=== PATIENT | male | born 1970 | race Caucasian/White ===

== ENCOUNTER 2019-07-08 11:08 | Emergency (ER) | payer BC ==
[~2019-07-08] VITALS: Ht 185.4 cm; Wt 130.0 kg
[~2019-07-08 11:08] MED LIST: ALBU17AE26 IH; CLIN150C8 PO; FAMO40TA59 PO; MICO113C TP; NO HOME MEDS; ONDA8TAB6 PO
[2019-07-08] MEDS ORDERED: acetaminophen 325mg/10.15ml oral unit dose solution PO ONE (11:25)
--- NOTE | 2019-07-08 12:23 | NUR ---
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
[2019-07-08 13:05] VITALS: BP 162/95
[2019-07-08] MEDS ORDERED: COLC0.6T69 PO (13:20)
[2019-07-08] MEDS ORDERED: dexamethasone 4mg/ml inj IM ONE (13:20)
[2019-07-08] MEDS ORDERED: triamcinolone acetonide 40mg/ml inj IM ONE (13:20)
--- NOTE | 2019-07-08 14:09 | NUR ---
PT STATES HE IS FEELING MUCH BETTER AND DENIES PAIN.
== END 2019-07-08 14:11 | disposition home or self-care (01) ==
LOC: ER 11:08
DX: M25.562 Pain in left knee (principal); R06.02 Shortness of breath; R07.9 Chest pain, unspecified; G89.29 Other chronic pain; G47.30 Sleep apnea, unspecified
CPT/HCPCS: 93971; 96372; 99284; J1100; J3301

== ENCOUNTER 2020-09-04 09:32 | Emergency (ER) | payer BC ==
[~2020-09-04] VITALS: Ht 180.3 cm; Wt 130.4 kg
[~2020-09-04 09:32] MED LIST changes: +COLC0.6T72 PO
[2020-09-04] MEDS ORDERED: LORazepam 2 mg/ml vial IV ONE (10:00)
[2020-09-04] MEDS ORDERED: meclizine 12.5mg tablet PO ONE (10:00)
[2020-09-04] MEDS ORDERED: ondansetron/PF 4mg/2ml inj IV ONE (10:00)
[2020-09-04 10:34] LABS: BASOPHILS % (AUTO) 0.5 % (0-1); EOSINOPHILS % (AUTO) 0.4 % (0-6); HEMATOCRIT 40.2 % (42.0-52.0); HEMOGLOBIN 13.6 g/dl (14.0-17.9); LYMPHOCYTES % (AUTO) 32.4 % (21-51); MEAN CORPUSCULAR HEMOGLOBIN 29.1 PG (27.0-31.0); MEAN CORPUSCULAR HGB CONC 33.7 g/dL (33.0-36.5); MEAN CORPUSCULAR VOLUME 86.3 FL (78-98); MEAN PLATELET VOLUME 9.7 FL (7.4-10.4); MONOCYTES # (AUTO) 0.6 X10'3 (0-0.9); MONOCYTES % (AUTO) 6.7 % (2-12); NEUTROPHILS # (AUTO) 5.6 X10'3 (1.8-7.7); PLATELET COUNT 250 X10'3 (140-440); RED BLOOD COUNT 4.66 X10'6 (4.70-6.10); RED CELL DISTRIBUTION WIDTH 13.7 % (11.5-14.5); WHITE BLOOD COUNT 9.3 X10'3 (4.5-11.0)
[2020-09-04] MEDS ORDERED: normal saline 1000ML IV soln IVB ONE ×2 (10:35→12:05)
[2020-09-04 10:39] LABS: PARTIAL THROMBOPLASTIN TIME 22 SECONDS (22-32)
[2020-09-04 10:41] LABS: ALANINE AMINOTRANSFERASE 53 U/L (12-78); ALBUMIN 4.2 G/DL (3.4-5.0); ALBUMIN/GLOBULIN RATIO 1.3 (1.1-1.5); ALKALINE PHOSPHATASE 88 IU/L (46-116); ANION GAP 16 (8-16); ASPARTATE AMINO TRANSFERASE 34 U/L (10-37); BILIRUBIN,TOTAL 0.6 MG/DL (0.1-1.0); BLOOD UREA NITROGEN 17 MG/DL (7-18); BUN/CREATININE RATIO 19.1 (5.4-32.0); CALCIUM 8.8 MG/DL (8.5-10.1); CHLORIDE 99 MMOL/L (99-107); CREATININE 0.89 MG/DL (0.60-1.10); GLUCOSE 303 MG/DL (70-104); POTASSIUM 3.4 MMOL/L (3.5-5.1); SODIUM 136 MMOL/L (135-145); TOTAL CARBON DIOXIDE 21.5 MMOL/L (24-32); TOTAL PROTEIN 7.5 G/DL (6.4-8.2); eGFR 90 ML/MIN
[2020-09-04 11:33] LABS: HEMOGLOBIN A1C 7.3 % (4.5-6.2)
[2020-09-04 11:38] LABS: COLOR,URINE YELLOW (Yellow); GLUCOSE, URINE 500 mg/dl (Neg); KETONES,URINE 40 mg/dl (Neg); LEUKOCYTE ESTERASE ,URINE NEGATIVE (Neg); NITRITES, URINE NEGATIVE (Neg); OCCULT BLOOD,URINE NEGATIVE (Neg); PH,URINE 5.5 (4.8-8.0); PROTEIN,URINE NEGATIVE (Neg); UROBILINOGEN,URINE 0.2 E.U/dL (0.2-1.0)
[2020-09-04 11:41] LABS: URINE AMPHETAMINE SCREEN NEGATIVE (Neg); URINE BARBITUATE SCREEN NEGATIVE (Neg); URINE BENZODIAZEPINES SCREEN NEGATIVE (Neg); URINE CANNABINOID SCREEN POSITIVE (Neg); URINE COCAINE SCREEN NEGATIVE (Neg); URINE METHADONE SCREEN NEGATIVE (Neg); URINE OPIATE SCREEN NEGATIVE (Neg); URINE PHENCYCLIDINE SCREEN NEGATIVE (Neg)
[2020-09-04 11:44] LABS: UA COLLECTION TYPE URINAL
[2020-09-04 11:45] LABS: CLARITY,URINE Slightly Cloudy (Clear); SQUAMOUS EPITHELIAL CELL,UR FEW /LPF (FEW)
[2020-09-04 11:46] LABS: BACTERIA,URINE NONE SEEN /HPF (Neg); MUCUS STRANDS MANY /LPF (Neg); RBC,URINE 0-2 /HPF (0-2); TRANSITIONAL EPI CELLS,URINE FEW /HPF; WBC,URINE 0-4 /HPF (0-4)
[2020-09-04] MEDS ORDERED: METF500T PO (12:09)
[2020-09-04] MEDS ORDERED: MECL-159 PO (12:09)
[2020-09-04] MEDS ORDERED: ONDA4TAB12 PO (12:09)
[2020-09-04 12:36] VITALS: BP 134/78
== END 2020-09-04 13:07 | disposition home or self-care (01) ==
LOC: ER 09:32
DX: E11.9 Type 2 diabetes mellitus without complications (principal); R42 Dizziness and giddiness; R07.89 Other chest pain; R53.83 Other fatigue; R53.1 Weakness; R11.2 Nausea with vomiting, unspecified; R10.13 Epigastric pain; I11.0 Hypertensive heart disease with heart failure; I50.9 Heart failure, unspecified; E78.00 Pure hypercholesterolemia, unspecified; I25.2 Old myocardial infarction; G89.29 Other chronic pain; Z98.890 Other specified postprocedural states; Z79.2 Long term (current) use of antibiotics; Z79.899 Other long term (current) drug therapy
CPT/HCPCS: 36415; 70450; 80053; 80305; 81001; 83036; 85025; 85610; 85730; 93005; 96361; 96374; 96375; 99285; J2060; J2405; J7030; J8597